=== PATIENT | female | born 1955 | race Caucasian/White ===

== ENCOUNTER 2017-02-26 15:24 | Emergency (ER) | payer BC ==
[~2017-02-26] VITALS: Ht 162.6 cm; Wt 82.3 kg
[2017-02-26] MEDS ORDERED: AMLODIPINE-OLM1 EACH PO (17:05)
[2017-02-26] MEDS ORDERED: LOPRESSOR25 MG PO (17:06)
[2017-02-26] MEDS ORDERED: MEDROL4 MG PO (17:07)
[2017-02-26] MEDS ORDERED: PROBIOTIC1 EAC4 PO (17:08)
[2017-02-26] MEDS ORDERED: VITAMIN C250 MG PO (17:08)
[2017-02-26] MEDS ORDERED: ERGOCALCIF50000 UNIT PO (17:09)
[2017-02-26 17:44] LABS: EOSINOPHIL (%) 0 % (0-5); HEMATOCRIT 39.9 % (36.0-46.0); IMMATURE GRANULOCYTE (%) 0.5 % (0.0-0.7); IMMATURE GRANULOCYTE COUNT 0.1 K/uL; INSTRUMENT ABS NEUTROPHIL CT 9.7 K/uL; LYMPHOCYTE COUNT 0.6 K/uL (1.0-2.8); MCH 30.6 PG (29.0-34.0); MCHC 32.8 G/DL (30.0-36.0); MCV 93.2 FL (83-99); MEAN PLAT.VOLUME 9.8 uM^3 (9.5-12.4); MONOCYTE (%) 2.7 % (3-12); MONOCYTE COUNT 0.3 K/uL (0-0.8); NEUTROPHIL (%) 90.8 % (45-76); NEUTROPHIL COUNT 9.7 K/uL (1.8-6.4); PLATELET COUNT 296 K/uL (156-360); RBC DIS.WIDTH-CV 12.4 % (11.8-14.6); RBC DIS.WIDTH-SD 42.4 % (39-53); RED BLOOD COUNT 4.28 M/uL (3.80-5.20); WHITE BLOOD COUNT 10.7 K/uL (4.1-10.2)
[2017-02-26 17:54] LABS: CHLORIDE 104 mEq/L (99-109); POTASSIUM 4.3 mEq/L (3.7-5.4); SODIUM 138 mEq/L (136-147)
[2017-02-26 17:56] LABS: GLUCOSE 131 mg/dL (70-99)
[2017-02-26 17:57] LABS: ANION GAP 13 MEQ/L (2-14)
[2017-02-26 18:00] LABS: GFR ESTIMATE (CALCULATED) > 59 mL/min/
[2017-02-26 18:01] LABS: TOTAL BILIRUBIN 0.6 mg/dL (0.0-1.0); UREA NITROGEN (BUN) 20 mg/dL (9-23)
[2017-02-26 18:02] LABS: ALKALINE PHOSPHATASE 96 IU/L (3-129)
[2017-02-26 18:04] LABS: DIRECT BILIRUBIN 0.2 mg/dL (0.0-0.3)
[2017-02-26] MEDS ORDERED: KEFLEX500 MG PO (18:49)
[2017-02-26] MEDS ORDERED: NORCO 5/3251 TABLET PO (18:49)
[2017-02-26] MEDS ORDERED: MOTRIN600 MG PO (18:49)
[2017-02-26 19:32] VITALS: BP 111/62
== END 2017-02-26 19:34 | disposition home or self-care (01) ==
LOC: EME 15:24
PROVIDERS: Physician Assistant
DX: M10.9 Gout, unspecified (principal); L03.116 Cellulitis of left lower limb; E11.9 Type 2 diabetes mellitus without complications; I10 Essential (primary) hypertension; K21.9 Gastro-esophageal reflux disease without esophagitis; Z85.9 Personal history of malignant neoplasm, unspecified; Z87.891 Personal history of nicotine dependence; Z88.0 Allergy status to penicillin; Z88.1 Allergy status to other antibiotic agents; Z88.8 Allergy status to other drugs, medicaments and biological substances
CPT/HCPCS: 80048; 80076; 83605; 85025; 86618; 87040; 99281; 99285; J0696; J7050

== ENCOUNTER 2017-07-26 16:17 | Inpatient (IN) | payer BC ==
[~2017-07-26] VITALS: Ht 162.6 cm; Wt 80.1 kg
[~2017-07-26 16:17] MED LIST: AMLODIPINE-OLM1 EACH PO; ERGOCALCIF50000 UNIT PO; KEFLEX500 MG PO; LOPRESSOR25 MG PO; MEDROL4 MG PO; MOTRIN600 MG PO; NORCO 5/3251 TABLET PO; PROBIOTIC1 EAC4 PO; VITAMIN C250 MG PO
[2017-07-26 18:24] LABS: HEMOGLOBIN 13.2 G/DL (11.9-15.5); MCHC 33.8 G/DL (30.0-36.0); MCV 91.5 FL (83-99); PLATELET COUNT 236 K/uL (156-360); RBC DIS.WIDTH-CV 13.4 % (11.8-14.6); RBC DIS.WIDTH-SD 45.8 % (39-53); RED BLOOD COUNT 4.26 M/uL (3.80-5.20); WHITE BLOOD COUNT 7.2 K/uL (4.1-10.2)
[2017-07-26 18:27] LABS: CARBON DIOXIDE (BICARBONATE) 12.7 MEQ/L (20-31)
[2017-07-26 18:34] LABS: ALBUMIN 3.9 g/dL (3.2-4.8); CHLORIDE 110 mEq/L (99-109); SODIUM 140 mEq/L (136-147)
[2017-07-26 18:36] LABS: GLUCOSE 87 mg/dL (70-99); TOTAL PROTEIN 7.7 g/dL (6.4-8.3)
[2017-07-26 18:38] LABS: TOTAL BILIRUBIN 0.3 mg/dL (0.0-1.0)
[2017-07-26 18:40] LABS: ALKALINE PHOSPHATASE 93 IU/L (3-129); GFR ESTIMATE (CALCULATED) 9 mL/min/
[2017-07-26 18:42] LABS: AST (GOT) 22 IU/L (2-34)
[2017-07-26 18:43] LABS: ALT (GPT) 24 IU/L (3-49)
[2017-07-26 18:55] LABS: POTASSIUM 6.1 mEq/L (3.7-5.4); UREA NITROGEN (BUN) 117 mg/dL (9-23)
[2017-07-26 19:11] LABS: APPEARANCE SL.HAZY ((CLEAR)); BILIRUBIN NEGATIVE; BLOOD SMALL; COLOR YELLOW ((YELLOW)); GLUCOSE (STRIP) NEGATIVE; KETONES NEGATIVE; LEUKOCYTES MODERATE; NITRITE NEGATIVE; PROTEIN (STRIP) 30; UROBILINOGEN 0.2 MG/DL (0.2-1.0)
[2017-07-26 19:13] LABS: ABS NEUTROPHIL COUNT 4.6; ATYPICAL LYMPHOCYTE 11.8 %; BAND NEUTROPHILS 12.8 % (0-8.0); EOSINOPHIL ABS CT 0.1; EOSINOPHILS 1.8 % (0-5.0); LYMPHOCYTES 11.8 % (15.0-45.0); MONOCYTES 10.9 % (0-9.0); NUCLEATED RBC'S 0.9; PLAT.SUFFICIENCY ADEQUATE; SEG.NEUTROPHILS 50.9 % (46.0-76.0)
[2017-07-26 19:22] LABS: BACTERIA RARE /HPF; EPITHELIAL CELLS RARE /HPF; MUCUS TRACE /LPF; UCUL ADDED? YES
[2017-07-26] MEDS ORDERED: METOPROLOL SUCC25 MG PO (20:37)
[2017-07-26] MEDS ORDERED: AMLODIPINE-BEN1 EAC3 PO (20:37)
[2017-07-26] MEDS ORDERED: ALLOPURINOL100 MG PO (20:38)
[2017-07-26] MEDS ORDERED: ASCORBIC ACID500 M1 PO (20:38)
[2017-07-27 02:32] LABS: CHLORIDE 113 mEq/L (99-109); POTASSIUM 4.3 mEq/L (3.7-5.4); SODIUM 145 mEq/L (136-147)
[2017-07-27 02:34] LABS: GLUCOSE 118 mg/dL (70-99)
[2017-07-27 02:40] LABS: CREATININE 3.1 mg/dL (0.6-1.3); GFR ESTIMATE (CALCULATED) 16 mL/min/; UREA NITROGEN (BUN) 116 mg/dL (9-23)
[2017-07-27 05:07] VITALS: BP 119/65
[2017-07-27 07:48] VITALS: BP 112/78
[2017-07-27 08:23] LABS: CARBON DIOXIDE (BICARBONATE) 15.4 MEQ/L (20-31)
[2017-07-27 09:24] LABS: GLUCOSE 92 mg/dL (70-99); POTASSIUM 4.7 MEQ/L (3.7-5.4); SODIUM 142 MEQ/L (136-147); UREA NITROGEN (BUN) 97 mg/dL (9-23)
[2017-07-27 09:28] LABS: CHLORIDE 118 MEQ/L (99-109); CREATININE 2.2 MG/DL (0.6-1.3); GFR ESTIMATE (CALCULATED) 24 mL/min/
[2017-07-27 12:02] VITALS: BP 99/66
[2017-07-27 14:41] LABS: CARBON DIOXIDE (BICARBONATE) 17.9 MEQ/L (20-31)
[2017-07-27 15:01] LABS: CHLORIDE 116 MEQ/L (99-109); CREATININE 1.9 MG/DL (0.6-1.3); GFR ESTIMATE (CALCULATED) 28 mL/min/; GLUCOSE 76 mg/dL (70-99); POTASSIUM 4.2 MEQ/L (3.7-5.4); SODIUM 143 MEQ/L (136-147); UREA NITROGEN (BUN) 84 mg/dL (9-23)
[2017-07-27 15:37] VITALS: BP 107/62
[2017-07-27 19:25] VITALS: BP 125/67
[2017-07-27 23:30] VITALS: BP 104/62
[2017-07-28] VITALS (7 sets, daily range): BP systolic 109–158; BP diastolic 56–72
[2017-07-28 07:16] LABS: HEMATOCRIT 33.3 % (36.0-46.0); HEMOGLOBIN 11.3 G/DL (11.9-15.5); MCHC 33.9 G/DL (30.0-36.0); MCV 91.2 FL (83-99); PLATELET COUNT 214 K/uL (156-360); RBC DIS.WIDTH-CV 13.3 % (11.8-14.6); RBC DIS.WIDTH-SD 44.8 % (39-53); RED BLOOD COUNT 3.65 M/uL (3.80-5.20); WHITE BLOOD COUNT 5.7 K/uL (4.1-10.2)
[2017-07-28 07:53] LABS: CHLORIDE 120 MEQ/L (99-109); GFR ESTIMATE (CALCULATED) 53 mL/min/; GLUCOSE 93 mg/dL (70-99); POTASSIUM 4.6 MEQ/L (3.7-5.4); SODIUM 145 MEQ/L (136-147); UREA NITROGEN (BUN) 57 mg/dL (9-23)
[2017-07-28 08:05] LABS: CREATININE 1.1 MG/DL (0.6-1.3)
[2017-07-28 10:30] LABS: HEMOGLOBIN A1c (GLYCOHEMOGLOB) 6.2 % (Below 5.7)
[2017-07-29 06:42] LABS: HEMATOCRIT 34.9 % (36.0-46.0); HEMOGLOBIN 11.6 G/DL (11.9-15.5); MCH 30.7 PG (29.0-34.0); MCHC 33.2 G/DL (30.0-36.0); MCV 92.3 FL (83-99); PLATELET COUNT 220 K/uL (156-360); RBC DIS.WIDTH-CV 13.3 % (11.8-14.6); RBC DIS.WIDTH-SD 45.4 % (39-53); RED BLOOD COUNT 3.78 M/uL (3.80-5.20); WHITE BLOOD COUNT 6.6 K/uL (4.1-10.2)
[2017-07-29 07:07] LABS: CHLORIDE 117 MEQ/L (99-109); GFR ESTIMATE (CALCULATED) > 59 mL/min/; GLUCOSE 99 mg/dL (70-99); POTASSIUM 4.8 MEQ/L (3.7-5.4); SODIUM 144 MEQ/L (136-147); UREA NITROGEN (BUN) 29 mg/dL (9-23)
[2017-07-29 07:10] VITALS: BP 126/78
[2017-07-29] MEDS ORDERED: AMLODIPINE BESY10 MG PO (07:35)
[2017-07-29] MEDS ORDERED: FLAGYL500 MG PO (09:45)
[2017-07-29 10:59] VITALS: BP 132/77
[2017-08-03] MEDS ORDERED: LOTREL 5/201 CAPSULE PO (09:41)
[2017-08-03] MEDS ORDERED: ZYLOPRIM100 MG PO (09:42)
[2017-08-03] MEDS ORDERED: TOPROL XL25 MG PO (09:43)
== END 2017-07-29 10:59 | disposition home or self-care (01) | DRG 683 ==
LOC: EME 16:17 → EDOF 07-27 01:31 → 2EAST 07-27 01:31 → ENRESERV 07-27 01:34 → 2EAST 07-27 04:52 → ENPENDDIS 07-29 → 2EAST 07-29 10:59
PROVIDERS: Emergency Medicine; Hospitalist; Internal Medicine
DX: N17.9 Acute kidney failure, unspecified (principal); E86.0 Dehydration; E87.2 Acidosis; E87.5 Hyperkalemia; E87.0 Hyperosmolality and hypernatremia; K52.9 Noninfective gastroenteritis and colitis, unspecified; E11.9 Type 2 diabetes mellitus without complications; I10 Essential (primary) hypertension; I44.0 Atrioventricular block, first degree; K21.9 Gastro-esophageal reflux disease without esophagitis; M10.9 Gout, unspecified; Z85.42 Personal history of malignant neoplasm of other parts of uterus; Z87.891 Personal history of nicotine dependence; Z88.1 Allergy status to other antibiotic agents; Z88.0 Allergy status to penicillin
CPT/HCPCS: 36415; 36600; 71045; 76770; 80048; 80048 91; 80053; 81003; 82010; 82803; 82948; 83036; 85025; 85027; 87086; 93005; 99281; 99285; J0610; J1644; J7030; J7050; J7120; S0030

== ENCOUNTER 2017-08-05 10:51 | Day surgery (SDC) | payer BC ==
[~2017-08-05] VITALS: Ht 162.6 cm; Wt 79.0 kg
[~2017-08-05 10:51] MED LIST changes: +ALLOPURINOL100 MG PO; +AMLODIPINE BESY10 MG PO; +AMLODIPINE-BEN1 EAC3 PO; +ASCORBIC ACID500 M1 PO; +FLAGYL500 MG PO; +LOTREL 5/201 CAPSULE PO; +METOPROLOL SUCC25 MG PO; +TOPROL XL25 MG PO; +ZYLOPRIM100 MG PO
[2017-08-05 11:31] VITALS: BP 117/73
[2017-08-05 17:21] VITALS: BP 142/74
[2017-08-05 18:07] VITALS: BP 120/68
== END 2017-08-05 18:45 | disposition home or self-care (01) ==
LOC: SDC 10:51
PROVIDERS: Podiatrist Foot & Ankle Surgery
PROC: 0QSP0ZZ Reposition Left Metatarsal, Open Approach (ICD-10-PCS; principal; 2017-08-05)
DX: M20.12 Hallux valgus (acquired), left foot (principal); K21.9 Gastro-esophageal reflux disease without esophagitis; E11.9 Type 2 diabetes mellitus without complications; I10 Essential (primary) hypertension; I44.0 Atrioventricular block, first degree; Z87.891 Personal history of nicotine dependence; Z88.0 Allergy status to penicillin
CPT/HCPCS: 73630; 76000; 82948; C1713; J0690; J1100; J1885; J2250; J2405; J3010; S0020